=== PATIENT | female | born 1990 | race African-American/Black ===

== ENCOUNTER 2018-01-20 18:28 | Emergency (ER) | payer OTHER ==
[~2018-01-20] VITALS: Ht 162.6 cm; Wt 63.5 kg
[~2018-01-20 18:28] MED LIST: ADVIL100 M2 PO; APAP500 PO; CLEOCIN HCL300 MG PO; DERMOPLAST SPRA56 ML; IBUPROFEN 600600 M1 PO; LANOLIN56 GM; MONISTAT 745 GM VG; NORCO 5-325 TA1 EACH PO; PRENATAL; PRENATAL PO; PRILOSEC 20 MG20 MG PO; TRAMADOL 50 MG50 MG PO; TUCKS MEDICATE1 EAC1 TOP
[2018-01-20 18:58] LABS: URINE BILIRUBIN NEGATIVE (Negative); URINE BLOOD TRACE (Negative); URINE CLARITY CLEAR; URINE COLOR YELLOW; URINE GLUCOSE-RANDOM* NEGATIVE (Negative); URINE KETONES NEGATIVE (Negative); URINE LEUKOCYTES-REFLEX NEGATIVE (Negative); URINE NITRITE-REFLEX NEGATIVE (Negative); URINE PROTEIN (DIPSTICK) NEGATIVE (Negative); URINE UROBILINOGEN 0.2 E.U./dl (0.2-1.0)
[2018-01-20] MEDS ORDERED: BCP TOP (19:05)
[2018-01-20 19:22] LABS: HEMATOCRIT 41.7 % (37.0-47.0); HEMOGLOBIN 14.5 gm/dL (12.0-15.0); MCH 29.7 pg (26.0-34.0); MCHC 34.8 g/dL (28.0-37.0); MCV 85.2 fL (80.0-100.0); RBC 4.9 mil/uL (4.20-5.00); RDW 13.5 % (10.5-14.5); WBC 6.2 thou/uL (4.0-11.0)
[2018-01-20] MEDS ORDERED: NAPROSYN500 MG PO (19:29)
== END 2018-01-20 19:54 | disposition home or self-care (01) ==
LOC: ER 18:28
PROVIDERS: Emergency Medicine
DX: N94.6 Dysmenorrhea, unspecified (principal); N93.8 Other specified abnormal uterine and vaginal bleeding; J45.909 Unspecified asthma, uncomplicated

== ENCOUNTER → 2018-04-03 | Outpatient (CLI) | payer OTHER ==
[~2018-04-03] MED LIST changes: +BCP TOP; +NAPROSYN500 MG PO
== END ==
LOC: ULTRA 11:23
DX: Z34.81 Encounter for supervision of other normal pregnancy, first trimester (principal); R10.32 Left lower quadrant pain

== ENCOUNTER → 2019-05-04 | Outpatient (CLI) | payer OTHER | LOC: ULTRA 11:15 | DX: R10.11 Right upper quadrant pain (principal) ==

== ENCOUNTER → 2019-09-19 | Outpatient (CLI) | payer BC | LOC: ULTRA 15:55 | DX: R10.32 Left lower quadrant pain (principal); Z87.42 Personal history of other diseases of the female genital tract ==

== ENCOUNTER → 2020-09-19 | Outpatient (CLI) | payer OTHER | LOC: ULTRA 10:00 | PROVIDERS: ATTEND Nurse Practitioner | DX: N60.02 Solitary cyst of left breast (principal) ==